=== PATIENT | male | born 1990 | race Caucasian/White ===

== ENCOUNTER 2017-01-30 10:01 | Emergency (ER) | payer OTHER ==
[~2017-01-30] VITALS: Ht 182.9 cm; Wt 119.5 kg
[2017-01-30 10:05] VITALS: TEMP 97.7; Ht 182.9 cm; Wt 119.5 kg
--- NOTE | 2017-01-30 10:20 | ERPDOC ---
Departure Disposition Decision Date: January 30, 2017 Disposition Decision Time: 11:18 Disposition: 01 DISCHARGED HOME, SELF-CARE Impression Impression Impression: Primary Impression: Strain of right deltoid muscle Encounter type: initial encounter Qualified Codes: S46.811A - Strain of other muscles, fascia and tendons at shoulder and upper arm level, right arm, initial encounter Severity: Moderate Condition: Improved Seen By: Physician only Referrals: Your Physician 3 Days Problems/Meds/Labs Reviewed?: Yes Medications reviewed and manag: Yes Additional Instructions: You have a muscle strain. Use NSAIDs, ice, and the muscle relaxer as needed for pain. Follow up with your doctor. Departure Forms: Return to Work/School Permit Follow up care ordered?: Yes Mental Status: Alert, Oriented Scripts Cyclobenzaprine HCl (Cyclobenzaprine HCl) 10 Mg Tablet 10 MG PO TID Y for MUSCLE SPASM, #40 TAB 0 Refills Prov: JANUARYOREN DO 01/30/17 HPI - Upper Extremity General Chief Complaint: Shoulder Injury Stated Complaint: RT SHOULDER PAIN Time Seen by MD: 10:18 Source: patient Exam Limitations: no limitations HPI - Upper Extremity Initial Comments 26yo man presents to the ER tonight with right shoulder pain. Pt was lifting wts yesterday, when his arm 'gave out' on him. He had no significant disability at that time, but later that day, he could not lift his arm to shoulder level. Pt has a h/o of a similar injury - was dx'ed as a deltoid strain. Pt feels that this is similar - is here today for a work note. Occurred At: other Onset/Timing: Rapid, Constant Duration: 12-24 hrs Pain/Severity Scale: Now & Worst: 8/10 Severity: severe Pain/Injury Location: right shoulder 1 - Pain 2 - Shoulder Method of Injury/Context: sports injury Modifying Factors: IMPROVES WITH: cold therapy, immobilization, WORSE WITH: jarring, movement Hx of Similar Symptoms: Yes Quality: aching, dullness Allergies: Coded Allergies: No Known Allergies (Unverified , 01/30/17) Past History Patient Medical History (1) Strain of right deltoid muscle Past Medical History GI: GERD Psychological: bipolar Review of Systems Musculoskeletal General: joint pain, spasm, tenderness (Over deltoid muscle), DENIES: joint swelling All other Systems All Other Systems: Reviewed and Negative Physical Exam General General Nourishment: well nourished, well developed, appears stated age, no acute distress, adult, obese General Body Habitus: well groomed Vitals and Pain First Documented Vital Signs Date Time Temp Pulse Resp B/P Pulse Ox O2 Delivery O2 Flow Rate FiO2 01/30/17 10:05 97.7 100 16 145/87 98 Room Air Weight: Kilograms: Height (feet): Height (inches): Triage Pain Scale: RN VS reviewed by Provider: Yes Musculoskeletal Muscular: FOUND: spasm, NOT FOUND: atrophy, clubbing, trigger point Joint : Side: Right Joint: shoulder Joint Findings: FOUND: ROM limited (Flexion to 30'; abduction to 25'), pain , NOT FOUND: deformity, discoloration, instability, swelling Supervisory Exam Head: atraumatic Eyes: PERRL Nares: no exudate Neck: trachea midline Chest: symmetric Abdomen: non-distended Neurological: no abnormal movements Skin: pink, dry Psychological: alert, appropriate Differential Diagnoses Considering: AC Separation, Contusion, Dislocation, Fracture, Sprain, Strain Progress Results/Orders Orders Procedure Category Date Status Time Shoulder Right 2-3 RAD 01/30/17 Resulted Views 10:18 Orphenadrine (Norflex) PHA 01/30/17 Complete 10:30 Ketorolac (Toradol) PHA 01/30/17 Complete 10:30 Medications Current ED Medications Orphenadrine Citrate (Norflex) 60 mg O ONCE IM Last administered on 01/30/17t 10:40; Start 01/30/17 at 10:30; Stop 01/30/17 at 10:31; Status DC Ketorolac Tromethamine (Toradol) 60 mg O ONCE IM Last administered on 10:40; Start 01/30/17 at 10:30; Stop 01/30/17 at 10:31; Status DC Progress Progress 26yo man with likely muscle strain. Will give pt work restrictions until seen by PCM. Will recommend treatment for muscular strain. Pt voiced understanding of dx, prognosis, tx, and f/u need. Xray Xray : Xray: Shoulder R Interpretation: Normal, Interpreted by Me OREN GUEVARA DO January 30, 2017 10:20
[2017-01-30] MEDS ORDERED: ORPHENADRINE 60mg/2ml INJECTION IM ONE (10:30)
[2017-01-30] MEDS ORDERED: KETOROLAC 60mg/2ml INJECTION IM ONE (10:30)
[2017-01-30] MEDS ORDERED: CARI4.5C PO (10:35)
[2017-01-30] MEDS ORDERED: OMEP-122 PO (10:35)
[2017-01-30] MEDS ORDERED: HYDR-347 PO (10:35)
[2017-01-30] MEDS ORDERED: IBUP-1547 PO (10:35)
--- NOTE | 2017-01-30 10:55 | NUR ---
X-RAY TRANSPORTED TO X-RAY VIA WHEELCHAIR PER X-RAY TECH.
--- NOTE | 2017-01-30 11:04 | NUR ---
RETURNED RETURNED FROM X-RAY.
--- NOTE | 2017-01-30 11:15 | DI ---
Indication: ITS.REASON: Right Shoulder pain after weight lifting injury yesterday PROCEDURE: SHOULDER RIGHT 3 VIEWS: Encounter: Initial Comparison: None Findings: There is no acute fracture, dislocation or malalignment identified. Acromioclavicular and glenohumeral joint spaces appear normal Impression: No acute osseous abnormality. .
[2017-01-30] MEDS ORDERED: CYCL-375 PO (11:20)
[2017-01-30 11:33] VITALS: BP 123/73; PULSE 87; RESP 16; O2SAT 97
--- NOTE | 2017-01-30 11:33 | NUR ---
DISMISSAL DISMISSAL INSTRUCTIONS WITH RX FOR FLEXERIL AND WORK NOTE. NO FURTHER QUESTIONS AT THIS TIME. PT LEFT DEPARTMENT AMBULATORY IN NO DISTRESS REPORTING PAIN IMPROVED
== END 2017-01-30 11:33 | disposition home or self-care (01) ==
LOC: ED 10:01
DX: S46.811A Strain of other muscles, fascia and tendons at shoulder and upper arm level, right arm, initial encounter (principal); X58.XXXA Exposure to other specified factors, initial encounter; Y93.B3 Activity, free weights; Y92.89 Other specified places as the place of occurrence of the external cause; Y99.8 Other external cause status
CPT/HCPCS: 73030; 96372; 99283; J1885; J2360